=== PATIENT | female | born 1965 | race Caucasian/White ===

== ENCOUNTER 2024-08-08 14:08 | Inpatient (IN) | payer OTHER, SELFPAY ==
[2024-08-08] VITALS (12 sets, daily range): BP systolic 118–155; BP diastolic 59–95; BMI 21.4
--- NOTE | 2024-08-08 09:57 | ED.GENMED ---
History of Present Illness
<Laura Art PA-C - Last Filed: 08/08/24 18:49>
General
Chief Complaint: Generalized Pain
Source: patient
Exam Limitations: none
Time Seen by Provider: 08/08/24 09:43
Nursing documentation reviewed up to this point in time: agreed with
History of Present Illness
History of Present Illness:
59-year-old female with a past medical history presents emergency department today with concerns of generalized left-sided weakness and paresthesias that started around 5 PM last night. Patient states that she is getting ready to go to dinner with
her when she started to feel a bit nauseous started to notice numbness and tingling sensation in her left upper extremity in a sensation that her arm felt heavier. She also started to feel this in her left lower extremity from the knee to
her toes. Patient denies any difficulty walking. Patient denies any dizziness or lightheadedness, any headaches, any neck pain. Patient denies any trauma to the head or neck. Patient denies any vomiting. Patient denies any abdominal pain, chest
pain, shortness of breath. Patient follows with her PCP yearly, is due to get blood work, does not take any medications, they are watching her blood pressure and cholesterol but she has not required medication. She does note that her father had a
stroke. She never had symptoms like this before. She denies any pain in her low back.
Review of Systems
<Laura Art PA-C - Last Filed: 08/08/24 18:49>
Review of Systems
All Other Systems: ROS reviewed and negative except as documented in HPI and ROS
Phy Exam
<Laura Art PA-C - Last Filed: 08/08/24 18:49>
Physical Exam
Physical Exam:
General: Patient is well appearing and in no acute distress; non-toxic
Skin: Warm and dry, no rashes or lesions
Head: Normocephalic, atraumatic
Eyes: Sclera non-icteric. EOMs intact. PERRLA.
Cardiac: Regular rate and rhythm, no murmurs
Peripheral Vascular: No lower extremity swelling or edema
Pulm: Normal respiratory effort, no wheezes, rales, or rhonchi
Musculoskeletal: No bony tenderness to palpation
Neuro: CN II-XII intact, no focal neurologic deficits. Mild sensory loss noted to light touch in left upper and lower extremity. 5 strength in bilateral upper and lower extremities.
Psychiatric: Appropriate mood and affect.
NIH Stroke Score
Level of Consciousness: 0 - Alert
LOC questions: 0-Answers both correctly
Best Gaze: 0-Normal
Visual [place]: 0=Normal, no visual loss
Facial palsy: 0=Normal, symmetrical
Motor - Right Arm: 0=No drift 10 seconds
Motor - Left Arm: 0=No drift 10 seconds
Motor - Right Le-No drift 5 seconds
Motor - Left Le-No drift 5 seconds
Limb Ataxia: 0-Absent
Sensation: 1-Mild loss
Best Language: 0-No aphasia
Dysarthria: 0-Normal
Extinction and Inattention: 0-No abnormality
Course
Tahirlt;Laura Art PA-C - Last Filed: 08/08/24 18:49>
Orders/Labs/Results
Orders:
Orders
08/08/24 10:19
Electrocardiogram (*1) Urgent
Reason for Study: TIA/Stroke
EKG- Treatment ONCE
08/08/24 10:23
Complete Blood Count/With Diff Urgent
Comprehensive Metabolic Panel Urgent
TSH Reflex To Free T4 Urgent
Comment: ADD ON
08/08/24 10:30
CT Head W/o Iv Contrast Urgent
Comment:
Reason For Exam: left sided weakness
08/08/24 10:35
Add On- LAB Urgent
Tests Added?: troponin
08/08/24 10:46
Add On- LAB Urgent
Tests Added?: TSH reflex to T4
08/08/24 11:08
Troponin I Routine
Comment: ADD ON
08/08/24 11:39
Aspirin 325 mg PO NOW STA
Clopidogrel Bisulfate [Plavix] 300 mg PO NOW STA
08/08/24 13:44
Admit/Transfer Patient As Directed
Co-Sign Provider:
Level of Care: Inpatient admission
Assign to:: Telemetry
Physician / Group: Francine Guaman
Diagnosis: CVA
Reason for Telemetry: CVA/TIA
Date to Stop Telemetry: 08/11/24
Time to Stop Telemetry: 11:00
Reason for Hospitalization: CVA
Expected length of stay greater than two midnights?: Yes
ELOS- Estimated Length of Stay in days: 3
I certify the patient meets the requirements for IP care: Yes
PRN Pain Medication Management As Directed
May give lesser potent ordered pain med per pt: Yes
preference::
Protocol:: Medication orders for pain may be administered in a
manner that supports deferring to patient preference
when the pt is:
- Requesting an ordered lesser potent pain medication.
Least to most potent pain medications are defined
as: acetaminophen < NSAID < tramadol < opioids
(morphine, oxycodone, hydromorphone).
- Requesting a lesser dose of the same medication IF
ORDERED.
- Requesting a less intrusive route of administration
if both routes are prescribed by the provider (PO <
IV).
08/08/24 13:45
Code Status As Directed
Resuscitation Status: Full Code
08/08/24 13:48
MR Brain W/o & With Contrast Routine
Reason For Exam: stroke/TIA
Recent pill cam endoscopy?: No
08/08/24 13:48
MA [place] Routine
Comment:
Reason For Exam: stroke/TIA
Recent pill cam endoscopy?: No
MA Neck With Contrast Routine
Comment:
Reason For Exam: stroke/TIA
Recent pill cam endoscopy?: No
08/08/24 18:31
Acetaminophen [Tylenol/Feverall] 650 mg RECTAL Q4HPRN PRN
Acetaminophen [Tylenol] 650 mg PO Q4HPRN PRN
Atorvastatin [Lipitor] 40 mg PO QPM
Enoxaparin Sodium [Lovenox] 40 mg SC QPM
08/08/24 18:31
Echo 2D MMode Color/Doppler Routine
Reason for Study: stroke/TIA
Comment: with doppler, patient 59 yo
Case Management Consult ONCE
Case Management Consult: Discharge Planning
Comment: stroke/tia
DIETARY CONSULT Routine
Reason for Consult: stroke/TIA
NEUROLOGY CONSULT Urgent
Consulting Provider: Nicole Vick
Was physician already notified: Yes
Chain Machine Operator Urgent
Activity As Directed
Activity Level: As Tolerated
NIH Stroke Scale As Directed
Directions: Per protocol
Comment: every shift and with any change in condition or mental status
Neurological Checks As Directed
Frequency: q4h
Additional Instructions:: q4h x 24h upon admission to the floor, then qshift & with any change in condition
and mental status
Patient Education As Directed
Type: Stroke education packet
Comment: provide to patient and family
Pneumatic Compression Sleeves As Directed
Type: Knee high
Swallow Screening CVA/TIA ONLY As Directed
Comment: NPO until swallowing screening completed
If patient FAILS swallow screening:: NPO, Speech Therapy consult, Aspiration Precautions
If patient PASSES swallow screening, diet:: Cholesterol Lowering
Vital Signs As Directed
Frequency: Per unit guidelines
Ot Eval And Treat Routine
Pt Eval And Treat Routine
Activity Level: As Tolerated
Speech Therapy Eval & Treat Routine
DX Deep Vein Thrombosis Video Routine
08/09/24 06:00
Basic Metabolic Panel IN AM
Cardiovascular Evaluation IN AM
Complete Blood Count/No Diff IN AM
Glycohemoglobin (HgbA1c) IN AM
08/09/24 08:00
Aspirin Chewable [Low Strength Aspirin] 81 mg PO DAILY
Clopidogrel Bisulfate [Plavix] 75 mg PO DAILY
08/11/24 11:00
DC Protocol for Telemetry ONCE
Abnormal Lab Results
08/08/24
10:23
RBC 3.82 L 10^6/uL
(4.20-5.40)
Hct 35.8 L %
(37.0-47.0)
MCH 33.0 H pg
(27.0-31.0)
08/08/24 10:23
08/08/24 10:23
Vital Signs
Initial and Last Documented VS:
Initial Vital Signs
Temp Pulse Resp BP Pulse Ox
98.8 F 72 16 150/59 98
08/08/24 09:27 08/08/24 09:27 08/08/24 09:27 08/08/24 09:27 08/08/24 09:27
Last Documented Vital Signs
Temp Pulse Resp BP Pulse Ox
98.8 F 68 16 125/78 99
08/08/24 09:27 08/08/24 09:54 08/08/24 09:27 08/08/24 17:00 08/08/24 18:27
<Darin Alex, DO - Last Filed: 08/08/24 11:35>
Orders/Labs/Results
Orders:
Orders
08/08/24 10:19
Electrocardiogram (*1) Urgent
Reason for Study: TIA/Stroke
EKG- Treatment ONCE
08/08/24 10:23
Complete Blood Count/With Diff Urgent
Comprehensive Metabolic Panel Urgent
TSH Reflex To Free T4 Urgent
Comment: ADD ON
08/08/24 10:30
CT Head W/o Iv Contrast Urgent
Comment:
Reason For Exam: left sided weakness
08/08/24 10:35
Add On- LAB Urgent
Tests Added?: troponin
08/08/24 10:46
Add On- LAB Urgent
Tests Added?: TSH reflex to T4
08/08/24 11:08
Troponin I Routine
Comment: ADD ON
08/08/24 11:39
Aspirin 325 mg PO NOW STA
Clopidogrel Bisulfate [Plavix] 300 mg PO NOW STA
08/08/24 13:44
Admit/Transfer Patient As Directed
Co-Sign Provider:
Level of Care: Inpatient admission
Assign to:: Telemetry
Physician / Group: Francine Guaman
Diagnosis: CVA
Reason for Telemetry: CVA/TIA
Date to Stop Telemetry: 08/11/24
Time to Stop Telemetry: 11:00
Reason for Hospitalization: CVA
Expected length of stay greater than two midnights?: Yes
ELOS- Estimated Length of Stay in days: 3
I certify the patient meets the requirements for IP care: Yes
PRN Pain Medication Management As Directed
May give lesser potent ordered pain med per pt: Yes
preference::
Protocol:: Medication orders for pain may be administered in a
manner that supports deferring to patient preference
when the pt is:
- Requesting an ordered lesser potent pain medication.
Least to most potent pain medications are defined
as: acetaminophen < NSAID < tramadol < opioids
(morphine, oxycodone, hydromorphone).
- Requesting a lesser dose of the same medication IF
ORDERED.
- Requesting a less intrusive route of administration
if both routes are prescribed by the provider (PO <
IV).
08/08/24 13:45
Code Status As Directed
Resuscitation Status: Full Code
08/08/24 13:48
MR Brain W/o & With Contrast Routine
Reason For Exam: stroke/TIA
Recent pill cam endoscopy?: No
08/08/24 13:48
MA [place] Routine
Comment:
Reason For Exam: stroke/TIA
Recent pill cam endoscopy?: No
MA Neck With Contrast Routine
Comment:
Reason For Exam: stroke/TIA
Recent pill cam endoscopy?: No
08/08/24 18:31
Acetaminophen [Tylenol/Feverall] 650 mg RECTAL Q4HPRN PRN
Acetaminophen [Tylenol] 650 mg PO Q4HPRN PRN
Atorvastatin [Lipitor] 40 mg PO QPM
Enoxaparin Sodium [Lovenox] 40 mg SC QPM
08/08/24 18:31
Echo 2D MMode Color/Doppler Routine
Reason for Study: stroke/TIA
Comment: with doppler, patient 59 yo
Case Management Consult ONCE
Case Management Consult: Discharge Planning
Comment: stroke/tia
DIETARY CONSULT Routine
Reason for Consult: stroke/TIA
NEUROLOGY CONSULT Urgent
Consulting Provider: Nicole Vick
Was physician already notified: Yes
Chain Machine Operator Urgent
Activity As Directed
Activity Level: As Tolerated
NIH Stroke Scale As Directed
Directions: Per protocol
Comment: every shift and with any change in condition or mental status
Neurological Checks As Directed
Frequency: q4h
Additional Instructions:: q4h x 24h upon admission to the floor, then qshift & with any change in condition
and mental status
Patient Education As Directed
Type: Stroke education packet
Comment: provide to patient and family
Pneumatic Compression Sleeves As Directed
Type: Knee high
Swallow Screening CVA/TIA ONLY As Directed
Comment: NPO until swallowing screening completed
If patient FAILS swallow screening:: NPO, Speech Therapy consult, Aspiration Precautions
If patient PASSES swallow screening, diet:: Cholesterol Lowering
Vital Signs As Directed
Frequency: Per unit guidelines
Ot Eval And Treat Routine
Pt Eval And Treat Routine
Activity Level: As Tolerated
Speech Therapy Eval & Treat Routine
DX Deep Vein Thrombosis Video Routine
08/09/24 06:00
Basic Metabolic Panel IN AM
Cardiovascular Evaluation IN AM
Complete Blood Count/No Diff IN AM
Glycohemoglobin (HgbA1c) IN AM
08/09/24 08:00
Aspirin Chewable [Low Strength Aspirin] 81 mg PO DAILY
Clopidogrel Bisulfate [Plavix] 75 mg PO DAILY
08/11/24 11:00
DC Protocol for Telemetry ONCE
Abnormal Lab Results
08/08/24
10:23
RBC 3.82 L 10^6/uL
(4.20-5.40)
Hct 35.8 L %
(37.0-47.0)
MCH 33.0 H pg
(27.0-31.0)
08/08/24 10:23
08/08/24 10:23
Vital Signs
Initial and Last Documented VS:
Initial Vital Signs
Temp Pulse Resp BP Pulse Ox
98.8 F 72 16 150/59 98
08/08/24 09:27 08/08/24 09:27 08/08/24 09:27 08/08/24 09:27 08/08/24 09:27
Last Documented Vital Signs
Temp Pulse Resp BP Pulse Ox
98.8 F 68 16 125/78 99
08/08/24 09:27 08/08/24 09:54 08/08/24 09:27 08/08/24 17:00 08/08/24 18:27
<Laura Art PA-C - Last Filed: 08/08/24 18:49>
MDM/Problems Addressed
Differential Diagnosis Includes:
Differentials include stroke, TIA, electrolyte derangement, ACS, herniated nucleus pulposus, thyroid disease
MDM/Problems Addressed:
59-year-old female with a past medical history presents emergency department today with concerns of generalized left-sided weakness and paresthesias that started around 5 PM last night. Patient states that she is getting ready to go to dinner with
her when she started to feel a bit nauseous started to notice numbness and tingling sensation in her left upper extremity in a sensation that her arm felt heavier. On exam, she is well-appearing, no acute distress, CBC and CMP unremarkable,
EKG shows no ischemic changes and troponin undetectable. Here in the emergency department, she has a nonfocal neurologic exam, NIH 1 for sensory loss, CT of the head negative. Discussed findings with neurology. Will admit for further evaluation
for stroke workup. Patient referred for admission
Chronic conditions affecting care:
n/a
Acute Exacerbation and/or Progression of Chronic Illness:
n/a
<Laura Art PA-C - Last Filed: 08/08/24 18:49>
*Pulse Oximetry
Patient hypoxic: no
*Critical Care Note
Total Time (30-74mins, 75-104mins- exclusive of procedures): Not Applicable
Data Reviewed
Review of Other/Old Records Reveals: Records (Reviewed [facility], no previous physician documentation emergency department) and Discharge Summary (No discharge summaries in [facility] to review)
Source: patient and records
Prescriptions/Medications Considered But Not Given:
n/a
Further Testing Considered But Not Given:
n/a
<Laura Art PA-C - Last Filed: 08/08/24 18:49>
Patient Management
Escalation/DeEscalation of care consider admission/obs:
Patient referred for admission
ED Attending Note
<Laura Art PA-C - Last Filed: 08/08/24 18:49>
-
Portions of this chart may have been created with voice recognition software.� Occasional wrong word or��sound alike� substitutions may have occurred due to the inherent limitations of voice recognition software.
<Darin Alex DO - Last Filed: 08/08/24 11:35>
ED Attending Note
Patient seen and examined by attending physician: Yes
I performed a history and physical exam of patient and discussed management with resident, I reviewed resident's note and agree with documented findings and plan of care.: Yes
ED Attending Note:
I reviewed and agree with history plan by Laura Art. My exam revealed
Physical Exam
General: no apparent distress, not acutely ill
Neck: supple. no meningeal signs. normal posterior pharynx
Heart: s1/s2 regular rate and rhythm, no murmur. equal radial
pulses.
HEENT: Pupils equal round reactive to light, EOMI
Lungs: no acute respiratory distress. clear bilaterally
Abdomen: normal bowel sounds. not tender. no CVAT
Neuro: alert and oriented. no focal neurological deficits cranial nerves II through XII intact, except mild sensation changes left upper and lower extremities
Skin: no rash
Psychiatric: well kept. interactive and cooperative
Extremities: no edema. no calf tenderness. negative homans. good distal pulses
CT head normal. Will consult with neurology.
Discharge Plan
Departure
Patient Disposition: Admit
Date of Disposition: 08/08/24
Time of Disposition: 11:43
Admit to: Med/Surg
Presentation/result/management discussed w/ accepting MD/DO: Hospitalist
Patient with high blood pressure during this ER visit?: Yes
Condition: Fair
Discharge Problem:
Left-sided weakness, Paresthesias
Interventions
Interventions:
*Risk Screen - Suicide Last Done: 08/08/24 09:27
*General Assessment Last Done: 08/08/24 09:55
*Neglect/Abuse Screening Last Done: 08/08/24 09:27
ED- Fall Risk Assessment Last Done: 08/08/24 09:55
*ED COVID-19 Vaccine History Last Done: 08/08/24 09:55
*Nursing Disposition Last Done: 08/08/24 18:27
Discharge Date and Time
Discharge Date/Time: 08/08/24 18:33
[2024-08-08 10:34] LABS: % Basophils 0.5 % (0-2); % Eosinophils 0.4 % (0-6); % Immature Granulocytes 0.2 % (0-0.5); % Lymphocytes 24.2 % (20.5-51.1); % Monocytes 6.4 % (1.7-9.3); % Neutrophils 68.3 % (42.2-75.2); Absolute Lymphocytes 1.3 10^3/uL (1.2-3.4); Absolute Monocytes 0.4 10^3/uL (0.1-0.6); Absolute Neutrophils 3.7 10^3/uL (1.4-6.5); Hematocrit 35.8 % (37.0-47.0); Hemoglobin 12.6 g/dL (12.0-16.0); Mean Corp Hgb Conc. 35.2 g/dL (33.0-37.0); Mean Corpuscular Volume 93.7 fL (81.0-99.0); Mean Platelet Volume 9.8 fL (7.4-10.4); Nucleated Red Blood Cells % 0 %; Platelet Count 198 10^3/uL (130-400); Red Blood Cell Count 3.82 10^6/uL (4.20-5.40); Red Cell Dist. Width 11.9 % (11.5-14.5); White Blood Cell Count 5.5 10^3/uL (4.8-10.8)
[2024-08-08 10:51] LABS: ALT (SGPT) 15 U/L (0-35); AST (SGOT) 23 U/L (14-36); Albumin 4.3 g/dl (3.5-5.0); Alkaline Phosphatase 70 U/L (38-126); Blood Urea Nitrogen 8 mg/dl (7-17); Calcium 9.3 mg/dl (8.4-10.2); Carbon Dioxide 28 mmol/L (22-30); Chloride 104 mmol/L (98-107); Estimated Creatinine Clearance 98 ml/min; Glucose 95 mg/dl (70-99); Sodium 141 mmol/L (135-145); Total Bilirubin 0.5 mg/dl (0.2-1.3); eGFR > 60.00
[2024-08-08 11:39] LABS: TSH Reflex To Free T4 1.11 uIU/ml (0.47-4.68)
[2024-08-08 11:42] LABS: Troponin I < 0.012 ng/ml
[2024-08-08] MEDS: PLAVIX 300 MG PO (11:52)
[2024-08-08] MEDS: ASPIRIN 325 MG PO (11:52)
--- NOTE | 2024-08-08 12:09 | CON.NEURO ---
Consultation
Order
Neurology consultation
Date of Consultation: 08/08/24
Requesting Provider: Laura Art PA-C
Reason for Consult: Sensory deficits
HPI: This is a 59-year-old RH woman who presented to [facility] on August 08, 2024 with motor and sensory symptoms
According to the patient she developed heaviness and pain in her right arm, which began last night after work. She describes the sensation as if 20 bricks were thrown on her arm, with the only relief coming from laying down and placing pillows
underneath her arm. She also reports feeling warm, numb, and experiencing a sensation similar to butterflies floating around in her right arm, extending from her shoulder to her hand. She notes that these symptoms began last night and persisted
through the night. Her ability to perform tasks such as typing and reaching above her neck are reportedly unaffected.
In addition to the arm symptoms, she reports experiencing some numbness and tingling in her left foot, which began approximately an hour after the onset of her arm symptoms. She denies any rhythmic movements, postural changes, or sensory loss in her
hands or face.
She denies any recent chiropractic manipulations, vaccinations, or exposure to neurotoxins. She does not smoke and drinks alcohol occasionally. She has a history of constipation but denies any other gastrointestinal issues. She has been experiencing
stress due to her son's recent deployment and misses him. She denies any recent fever, weight loss, or swallowing difficulties.
ER VS: 150/59, 72, afebrile
EKG: NSR, QTc Int : 431 ms
PDMP: none
Labs: normal WBCs, hemoglobin, platelets, sodium, hemoglobin, creatinine, TSH, troponin
CT head-no acute intracranial abnormality noted.
PMH:constipation, seborrheic keratosis, BCC
PSH:none
SH:; works for [employer] in [employer]; nonsmoker; no history of excessive ETOh use
FH:father-stroke at the age of 68, mother has myasthenia gravis
All:NKDA
ROS:Constitutional: Negative. Negative for chills, fever and unexpected weight change.
HENT: Negative for ear pain, hearing loss, tinnitus and trouble swallowing.
Eyes: Negative. Negative for photophobia, pain and visual disturbance.
Respiratory: Negative for cough, choking and shortness of breath.
Cardiovascular: Negative for chest pain, palpitations and leg swelling.
Gastrointestinal: Positive for intermittent constipation
Endocrine: Negative. Negative for cold intolerance.
Genitourinary: Negative for dysuria, flank pain and urgency.
Musculoskeletal: Negative for back pain, gait problem, neck pain and neck stiffness.
Skin: Negative for rash.
Allergic/Immunologic: Negative. Negative for immunocompromised state.
Neurological: Positive for left arm weakness and left arm and leg paresthesias
Psychiatric/Behavioral: Negative for behavioral problems, confusion and hallucinations.
General: Well developed. In no acute distress.
Cardio: Regular rate and rhythm without murmur. Extremities are without cyanosis or edema.
Neuro:
Mental Status: Alert, oriented to person, place, and date. Normal attention and recall. Good fund of knowledge. Follows complex requests across the midline. Comprehension, naming, and repetition intact. Immediate and delayed recall 3/3.
Cranial Nerves: . Pupils are equally round and reactive to light. EOMs full. Visual smiley full to confrontation. No ptosis. No nystagmus. V1-V3 intact to light touch and pinprick bilaterally, symmetric. Face symmetric. Normal hearing AU.
The palate elevated well. SCMs and traps 5/5. Tongue midline. No dysarthria.
Motor: Normal bulk and tone. No pronator or arm drift. Strength 5/5 throughout, except for left biceps�4 out of 5, left triceps 5- out of 5. no clonus.
Reflexes: 2+ throughout the upper extremities and knees. Plantar responses flexor bilaterally. Negative Chrystal's bilaterally
Sensory: Normal vibration and JPS.
Coordination: No dysmetria or tremor.
Gait: Normal base, stance, stride and arm swing
Assessment and Plan:
I. Left proximal monoparesis/hemisensory deficits. Rule out ischemia, demyelinating etiologies
II. Elevated blood pressure
-Telemetry monitoring
-Please obtain brain MRI without eric
-Please check CK, ESR, CRP, Mg
-Outpatient NCS/EMG in brain MRI is unremarkable
-The case was discussed with patient's spouse
I personally reviewed all radiology and labs along with past medical records pertinent to current medical problems. Total time spent in patient care is 60 minutes.
Thank you for allowing us to participate in the care of this patient. We will continue to follow. Please do not hesitate to contact us with any questions or concerns.
Subjective/Objective
Subjective Data
Date of Service: August 08, 2024
Objective Data
Vital Signs
Temp Pulse Resp BP Pulse Ox
37.1 C 68 16 135/88 98
08/08/24 09:27 08/08/24 09:54 08/08/24 09:27 08/08/24 11:03 08/08/24 11:45
Lab Results
08/08/24 10:23
08/08/24 10:23
Sodium 141 mmol/L (135-145) 08/08/24 10:23
Potassium 4.0 mmol/L (3.5-5.1) 08/08/24 10:23
BUN 8 mg/dl (7-17) 08/08/24 10:23
Glucose 95 mg/dl (70-99) 08/08/24 10:23
Calcium 9.3 mg/dl (8.4-10.2) 08/08/24 10:23
Patient Allergies
NKA - No Known Allergies Allergy (Uncoded 08/08/24 09:28)
Unknown
Medications
-
Home Medications
�Medication �Instructions �Recorded
No Meds [No Current Medications] 08/08/24
Home Medications
-
Home Medications
bisacodyl 5 mg tablet,delayed release (Dulcolax (bisacodyl)) 10 mg PO FR 08/08/24
cartilage 40 mg-collagen II 10 mg-boron 5 mg-hyaluronate 3.3 mg tablet (Flowgram) 1 tab PO DAILY 08/08/24
ibuprofen 400 mg tablet 400 mg PO BIDPRN PRN mild pain 08/08/24
red yeast rice 600 mg tablet 600 mg PO DAILY 08/08/24
Vital Signs and Labs
-
Vital Signs and Labs:
Vital Signs
Temp Pulse Resp BP Pulse Ox
37.1 C 68 16 140/87 99
08/08/24 09:27 08/08/24 09:54 08/08/24 09:27 08/08/24 12:00 08/08/24 12:01
Lab Results
08/08/24 10:23
08/08/24 10:23
Sodium 141 mmol/L (135-145) 08/08/24 10:23
Potassium 4.0 mmol/L (3.5-5.1) 08/08/24 10:23
BUN 8 mg/dl (7-17) 08/08/24 10:23
Glucose 95 mg/dl (70-99) 08/08/24 10:23
Calcium 9.3 mg/dl (8.4-10.2) 08/08/24 10:23
--- NOTE | 2024-08-08 13:21 | HPS.HSE ---
Family Physician
-
Family Physician: Елена Nicholas PA-C
Chief Complaint
-
left-sided weakness and paresthesias
History of Present Illness
Ms. Yani Bowers is a 59 yo woman without significant past medical history who presents to the ER with concerns of left-sided weakness and paresthesias that started last night around 5PM.
She states symptoms started in left arm where she felt a heaviness and pain. Symptoms persisted and this morning noticed numbness/tingling in leg with weakness. Left arm symptoms present but improved.
No headache. No fevers/chills. No chest pain. No shortness of breath. + nausea associated with symptoms, no vomiting. No LE swelling. + chronic constipation. No dysuria. No rash.
Medical History
Past Medical History
Past Medical History: Reports None
Past Surgical History: Reports None
Social History
Tobacco: Non-smoker
Alcohol: Occasional
Family History
Family History: Not pertinent
Allergies / Home Medications
Allergies reflects when Allergies were last updated in [facility].
Home Medications with original date entered in [facility]
Allergy/Medication List:
Allergies
Allergy/AdvReac Type Severity Reaction Status Date / Time
NKA - No Known Allergies Allergy Unknown Uncoded 08/08/24 09:28
Home Medications
bisacodyl 5 mg tablet,delayed release (Dulcolax (bisacodyl)) 10 mg PO FR 08/08/24
cartilage 40 mg-collagen II 10 mg-boron 5 mg-hyaluronate 3.3 mg tablet ([facility]) 1 tab PO DAILY 08/08/24
ibuprofen 400 mg tablet 400 mg PO BIDPRN PRN mild pain 08/08/24
red yeast rice 600 mg tablet 600 mg PO DAILY 08/08/24
Review of Systems
-
History Source: Patient
A 12 point ROS was completed and negative except as noted: Yes
Physical Exam
Vital Signs
Vital Signs
Temp Pulse Resp BP Pulse Ox
98.8 F 68 16 140/87 99
08/08/24 09:27 08/08/24 09:54 08/08/24 09:27 08/08/24 12:00 08/08/24 12:01
Physical Exam
General: No Apparent Distress
HEENT: PERRLA
Respiratory: Clear; No Wheezes
Cardiac: S1/S2 and Regular Rhythm
GI: Soft and Non Tender
Musculoskeletal: No Edema
Neuro: AO x 3 and Other (CHAD, EOMI, no facial asymmetry, 5/5 strength b/l upper extremities, no pronator drift, 4+/5 strength LLE with decreased sensation LLE )
Psych: Calm
Laboratory Results
-
08/08/24 10:23
08/08/24 10:23
Laboratory Results
Total Bilirubin 0.5 mg/dl (0.2-1.3) 08/08/24 10:23
AST 23 U/L (14-36) 08/08/24 10:23
ALT 15 U/L (0-35) 08/08/24 10:23
Alkaline Phosphatase 70 U/L (38-126) 08/08/24 10:23
Troponin I < 0.012 ng/ml 08/08/24 11:08
Data Reviewed
-
Diagnostic Radiology: Report Reviewed by me
Lab Data: Labs Reviewed by me
Impression/Plan
-
Ms. Yani Bowers is a 59 yo woman without significant past medical history who presents to the ER with concerns of left-sided weakness and paresthesias that started last night around 5PM.
Triage VS: T 98.8, P 72, RR 16, BP 150/59, SpO2 98%
LABS: WBC 5.5, Hg 12.6, PLT 198, Na 141, K+ 4.0, CO2 28, Cr 0.6, Glucose 95, Trop < 0.012, liver enzymes WNL, TSH 1.11
Troponin negative
HEAD CT
IMPRESSION:
No acute intracranial abnormality noted.
MAR: asa 325 + plavix 300
Left sided weakness with paraesthesias
Left arm pain/weakness
-negative troponin and normal EKG
-concern for CVA versus demyelinating disease?
-admit to telemetry
-neuro checks
-MRI/MRA
-TTE
-neurology consult
-asa/plavix/statin
-PT/OT
DVT PPx lovenox subQ
FULL CODE
[2024-08-08] MEDS: LIPITOR 40 MG PO (20:18)
[2024-08-08] MEDS: LOVENOX 40 MG SC (20:18)
[2024-08-09 03:00] VITALS: BP 138/80
[2024-08-09 06:00] VITALS: BMI 21.3
[2024-08-09 08:08] VITALS: BP 124/70
[2024-08-09 08:09] LABS: Hematocrit 38.2 % (37.0-47.0); Hemoglobin 13.4 g/dL (12.0-16.0); Mean Corp Hgb Conc. 35.1 g/dL (33.0-37.0); Mean Corpuscular Hgb 33.8 pg (27.0-31.0); Mean Corpuscular Volume 96.2 fL (81.0-99.0); Platelet Count 201 10^3/uL (130-400); Red Blood Cell Count 3.97 10^6/uL (4.20-5.40); Red Cell Dist. Width 11.9 % (11.5-14.5); White Blood Cell Count 4.3 10^3/uL (4.8-10.8)
[2024-08-09 08:31] LABS: Blood Urea Nitrogen 11 mg/dl (7-17); Calcium 9.4 mg/dl (8.4-10.2); Carbon Dioxide 24 mmol/L (22-30); Chloride 105 mmol/L (98-107); Estimated Creatinine Clearance 84 ml/min; Glucose 92 mg/dl (70-99); HDL Cholesterol 76 mg/dl; LDL Cholesterol, Calculated 150 mg/dl; Potassium 4.1 mmol/L (3.5-5.1); Sodium 141 mmol/L (135-145); Total Cholesterol 246 mg/dl (50-199); Triglyceride 104 mg/dl (10-149); Very Low Density Lipoprotein 20 mg/dl (0-30); eGFR > 60.00
[2024-08-09] MEDS: PLAVIX 75 MG PO (08:41)
[2024-08-09] MEDS: LOW STRENGTH ASPIRIN 81 MG PO (08:41)
[2024-08-09] MEDS: FLUSH (NSS) 1 FLUSH IV (08:41)
--- NOTE | 2024-08-09 09:39 | W.PN.NEURO.1 ---
Today's Communication / Plan
-
.
Subjective/Objective
Subjective Data
Date of Service: August 09, 2024
Neurology follow-up note.
No acute events overnight. Ms. Bowers reports no compaints.
Brain MRI w/wo eric-numerous nonenhancing T2/FLAIR hyperintensities within the subcortical and periventricular white matter, left cerebellar developmental venous anomaly�
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
LDL 150, t chol 246, normal TSH
PMH:constipation, seborrheic keratosis, BCC
PSH:none
SH:; works for [employer] in [employer]; nonsmoker; no history of excessive ETOh use
FH:father-stroke at the age of 68, mother has myasthenia gravis
All:NKDA
ROS:Constitutional: Negative. Negative for chills, fever and unexpected weight change.
HENT: Negative for ear pain, hearing loss, tinnitus and trouble swallowing.
Eyes: Negative. Negative for photophobia, pain and visual disturbance.
Respiratory: Negative for cough, choking and shortness of breath.
Cardiovascular: Negative for chest pain, palpitations and leg swelling.
Gastrointestinal: Positive for intermittent constipation
Endocrine: Negative. Negative for cold intolerance.
Genitourinary: Negative for dysuria, flank pain and urgency.
Musculoskeletal: Negative for back pain, gait problem, neck pain and neck stiffness.
Skin: Negative for rash.
Allergic/Immunologic: Negative. Negative for immunocompromised state.
Neurological: Positive for left arm weakness and left arm and leg paresthesias
Psychiatric/Behavioral: Negative for behavioral problems, confusion and hallucinations.
General: Well developed. In no acute distress.
Cardio: Regular rate and rhythm without murmur. Extremities are without cyanosis or edema.
Neuro:
Mental Status: Alert, oriented to person, place, and date. Normal attention and recall. Good fund of knowledge. Follows complex requests across the midline. Comprehension, naming, and repetition intact. Immediate and delayed recall 3/3.
Cranial Nerves: . Pupils are equally round and reactive to light. EOMs full. Visual smiley full to confrontation. No ptosis. No nystagmus. V1-V3 intact to light touch and pinprick bilaterally, symmetric. Face symmetric. Normal hearing AU.
The palate elevated well. SCMs and traps 5/5. Tongue midline. No dysarthria.
Motor: Normal bulk and tone. No pronator or arm drift. Strength 5/5 throughout, except for left biceps�4 out of 5, left triceps 5- out of 5. no clonus.
Reflexes: 2+ throughout the upper extremities and knees. Plantar responses flexor bilaterally. Negative Chrystal's bilaterally
Sensory: Normal vibration and JPS.
Coordination: No dysmetria or tremor.
Gait: Normal base, stance, stride and arm swing
Assessment and Plan:
I. Radiologically isolated syndrome
II. Left cerebellar developmental venous anomaly�
III. DLP
-C/T spine MRI w/wo eric
-MS mimickers blood work
-Plan for CSF testing, MCKENZIE
I personally reviewed all radiology and labs along with past medical records pertinent to current medical problems. Total time spent in patient care is 35 minutes.
Thank you for allowing us to participate in the care of this patient. We will continue to follow. Please do not hesitate to contact us with any questions or concerns.
Objective Data
Vital Signs
Temp Pulse Resp BP Pulse Ox
36.6 C 68 18 124/70 97
08/09/24 08:08 08/09/24 08:08 08/09/24 08:08 08/09/24 08:08 08/09/24 08:08
Lab Results
08/09/24 07:50
08/09/24 07:50
Sodium 141 mmol/L (135-145) 08/09/24 07:50
Potassium 4.1 mmol/L (3.5-5.1) 08/09/24 07:50
BUN 11 mg/dl (7-17) 08/09/24 07:50
Glucose 92 mg/dl (70-99) 08/09/24 07:50
Calcium 9.4 mg/dl (8.4-10.2) 08/09/24 07:50
LDL Cholesterol, Calc 150 mg/dl 08/09/24 07:50
Patient Allergies
NKA - No Known Allergies Allergy (Uncoded 08/08/24 09:28)
Unknown
Vital Signs and Labs
-
Vital Signs and Labs:
Vital Signs
Temp Pulse Resp BP Pulse Ox
36.6 C 68 18 124/70 97
08/09/24 08:08 08/09/24 08:08 08/09/24 08:08 08/09/24 08:08 08/09/24 08:08
Lab Results
08/09/24 07:50
08/09/24 07:50
Sodium 141 mmol/L (135-145) 08/09/24 07:50
Potassium 4.1 mmol/L (3.5-5.1) 08/09/24 07:50
BUN 11 mg/dl (7-17) 08/09/24 07:50
Glucose 92 mg/dl (70-99) 08/09/24 07:50
Calcium 9.4 mg/dl (8.4-10.2) 08/09/24 07:50
LDL Cholesterol, Calc 150 mg/dl 08/09/24 07:50
Medications
-
Medications:
Generic Name Dose Route Start Last Admin
Trade Name Freq PRN Reason Stop Dose Admin
Acetaminophen 650 mg 08/08/24 18:31
Acetaminophen 650 Mg Rectal Suppository RECTAL 09/05/24 18:30
Q4HPRN PRN
LAI, mild pain, or temp >100.4F
Acetaminophen 650 mg 08/08/24 18:31
Acetaminophen 325 Mg Tablet PO 09/05/24 18:30
Q4HPRN PRN
LAI, mild pain, or temp >100.4F
Aspirin 81 mg 08/09/24 08:00 08/09/24 08:41
Aspirin 81 Mg Chewable Tablet PO 09/06/24 07:59 81 mg
DAILY TREVON Administration
Atorvastatin Calcium 40 mg 08/08/24 18:31 08/08/24 20:18
Atorvastatin (Lipitor) 40 Mg Tablet PO 09/05/24 18:30 40 mg
QPM TREVON Administration
Clopidogrel Bisulfate 75 mg 08/09/24 08:00 08/09/24 08:41
Clopidogrel 75 Mg Tablet PO 09/06/24 07:59 75 mg
DAILY TREVON Administration
Enoxaparin Sodium 40 mg 08/08/24 18:31 08/08/24 20:18
Enoxaparin Sodium 40 Mg/0.4 Ml Syringe SC 09/05/24 18:30 40 mg
QPM TREVON Administration
Sodium Chloride 0 flush 08/09/24 09:00 08/09/24 08:41
Sodium Chloride 0.9% (Flush) Syringe IV 09/06/24 08:59 1 flush
PER PROTOCOL TREVON Administration
Home Medications
-
Home Medications
bisacodyl 5 mg tablet,delayed release (Dulcolax (bisacodyl)) 10 mg PO FR 08/08/24
cartilage 40 mg-collagen II 10 mg-boron 5 mg-hyaluronate 3.3 mg tablet ([employer]) 1 tab PO DAILY 08/08/24
ibuprofen 400 mg tablet 400 mg PO BIDPRN PRN mild pain 08/08/24
red yeast rice 600 mg tablet 600 mg PO DAILY 08/08/24
[2024-08-09 10:12] LABS: Erythrocyte Sed Rate 16 mm/hour (0-20)
--- NOTE | 2024-08-09 10:13 | PTOTSP ---
Speech Therapy Evaluation
Pt's oropharyngeal swallow within functional limits at this time. Pt passed nursing swallow screen and demonstrated no overt s/sx of aspiration on evaluation. Pt remains at a minimal-low risk for aspiration related complications.
Recommend:
1. Continue IDDSI Level 7 (regular) and thin liquids
2. Medications as tolerated
3. General aspiration precautions
4. No further ST indicated. 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
[2024-08-09 10:15] VITALS: BP 145/78; PULSE 75
--- NOTE | 2024-08-09 10:34 | PTCARENOTE ---
Pt here for Echo/Bubble Study. Procedure completed with aseptic technique per protocol. Left arm 20 G PC Median Antecubital utilized, site clear, flushed easily pre and post Bubble Study. Pt tolerated procedure well, denies any dizziness, denies
SOB, offers no complaints. No change in status.
[2024-08-09 10:41] LABS: Glycohemoglobin (HgbA1c) 5.1 % (4.0-5.6)
[2024-08-09 10:50] VITALS: BP 145/78; PULSE 75
--- NOTE | 2024-08-09 10:52 | W.PN.HOSP.TC ---
Today's Communication/Plan
-
-plan for C/T spine MRI with and without contrast
-F/U blood work: lyme, CHARITY, vasculitis antibodies, angiotensin-1 enzyme
-appreciate neurology
Assessment / Plan
Assessment / Plan
Ms. Yani Bowers is a 59 yo woman without significant past medical history who presents to the ER with concerns of left-sided weakness and paresthesias that started last night around 5PM.
HEAD CT 08/08/24
IMPRESSION:
No acute intracranial abnormality noted.
MRI 08/08/24
IMPRESSION:
No evidence of acute infarction
Additionally there are numerous T2/FLAIR hyperintensities within the subcortical and periventricular white matter, greater than expected for age. Differential includes demyelinating disease, migraines, vasculitis or small vessel disease.
Consider correlation with CSF.
HEAD MRA 08/08/21
IMPRESSION:
This examination demonstrates no focal hemodynamically significant stenosis, aneurysm or occlusion.
NECK MRA 08/08/24
IMPRESSION:
This examination demonstrates no focal hemodynamically significant stenosis, aneurysm or occlusion.
Left sided weakness with paraesthesias
Left arm pain/weakness
-negative troponin and normal EKG
-MRI without acute CVA, finding numerous T2/flair hyperintensities concerning for demyelinating disease, migraines or vasculities
-appreciate neurology consult
-plan for C/T spine MRI with and without contrast
-F/U blood work: lyme, CHARITY, vasculitis antibodies, angiotensin-1 enzyme
DVT PPx lovenox subQ
FULL CODE
Anticipated Discharge: 24 - 48 hours
Subjective/Interval History
-
Date of Service: August 09, 2024
left arm feels good. left leg with parasthesias
Objective Data
-
Labs:
Laboratory Results
08/09/24
07:50
WBC 4.3 L
Hgb 13.4
Hct 38.2
Plt Count 201
Sodium 141
Potassium 4.1
Chloride 105
Carbon Dioxide 24
BUN 11
Creatinine 0.7
Glucose 92
Calcium 9.4
Vital Signs:
Vital Signs
Temp Pulse Resp BP Pulse Ox
97.9 F 68 18 124/70 97
08/09/24 08:08 08/09/24 08:08 08/09/24 08:08 08/09/24 08:08 08/09/24 08:08
I&O
08/08/24 08/09/24 08/10/24
06:59 06:59 06:59
Intake Total 480 / 480
Balance 480 / 480
Review of Systems
-
History Source: Patient
All other systems: Reviewed and negative
Physical Exam
-
General: No Apparent Distress
HEENT: PERRLA
Respiratory: Clear to Auscultation; Negative Wheezes
Cardiac: Regular Rhythm and S1/S2
GI: Soft and Nontender
Musculoskeletal: No Edema
Skin: Warm and Dry; Negative Rash
Neuro: AO x 3 and Other (decreased sensation LLE )
Psych: Calm
Data Reviewed
-
Diagnostic Radiology: Report Reviewed by me
Labs: Labs Reviewed by me
[2024-08-09 11:24] VITALS: BP 139/76
[2024-08-09 11:58] LABS: C-Reactive Protein < 5.00 mg/L (0.0-10.00)
[2024-08-09 13:07] LABS: Folate > 20.0 ng/ml (2.76-20); Vitamin B12 264 pg/ml (239-931)
[2024-08-09] MEDS: TYLENOL 650 MG PO (13:18)
[2024-08-09] MEDS: ATIVAN 0.5 MG PO (14:12)
--- NOTE | 2024-08-09 14:50 | CM ---
CM met with Yani at bedside to complete IA. Yani lives with her in a 2 story home; bed and bath on the 2nd level; AK on the first floor.
No hx of VN or SNF. 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
No needs anticipated at this time. CM to follow for test results (Lyme, CHARITY IgG, Proteinase3, and Meloperoxidase pending) and work up.
Pharmacy: [facility]
PCP: Елена Nicholas
[2024-08-09 17:31] VITALS: BP 129/80
--- NOTE | 2024-08-09 18:09 | W.DS.TRANS ---
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
-
Discharge Instructions:
Discharge Diagnosis/Procedures left sided weakness and paresthesias with
abnormal MRI findings
Diet Regular
Activity As tolerated
Driving Restrictions As prior to admission
Bathing Restrictions None
Instructions:
Stand-Alone Forms:
Changes to Home Medications: No
Discharge Medications:
DC Medications w/original date entered in [facility]
bisacodyl 5 mg tablet,delayed release (Dulcolax (bisacodyl)) 10 mg PO FR Constipation 08/08/24
cartilage 40 mg-collagen II 10 mg-boron 5 mg-hyaluronate 3.3 mg tablet ([facility]) 1 tab PO DAILY Supplement 08/08/24
ibuprofen 400 mg tablet 400 mg PO BIDPRN PRN mild pain 08/08/24
red yeast rice 600 mg tablet 600 mg PO DAILY Supplement 08/08/24
Home Medication Changes
Pending Results: Yes
Additional Pending Results:
lyme, CHARITY, vasculitis antibodies, angiotensin-1 enzyme
--- NOTE | 2024-08-10 12:53 | W.DCSUMMARY ---
Discharge Summary
Discharge Data
Date of Admission: 08/08/24
Date of Discharge: 08/10/24
-
Pending Results: No
Hospital Course
Discharging Physician : Dr. Francine Guaman
Disposition : Home
Primary care physician : Dr. Елена Nicholas
Principal Discharge diagnosis : left sided weakness and paresthesias with abnormal MRI findings; radiographic isolated syndrome
Hospital Course :
Ms. Yani Bowers is a 59 yo woman without significant past medical history who presents to the ER with concerns of left-sided weakness and paresthesias that started last evening. Triage vitals with BP 150/59; labs essentially unremarkable. Head
CT without acute abnormality. She was given aspirin and plavix load and admitted to medicine with Neurology consulting. The following day patient had an MRI which showed no evidence of stroke; numberous T2/FLAIR hyperintensities with differential
demyelinating disease versus migraine versus vasculitis. This was followed by MRI Cervical and Thoracic spine which had no abnormality. Blood work including: lyme, CHARITY, vasculitis antibodies, angiotensin-1 enzyme was sent off and pending at time
of discharge. Her symptoms largely resolved over next 24 hours except minor parasthesias LLE. She is discharged with outpatient Neurology follow up.
Time spent on discharge was 31 minutes.
Important imaging findings :
HEAD CT 08/08/24
IMPRESSION:
No acute intracranial abnormality noted.
MRI 08/08/24
IMPRESSION:
No evidence of acute infarction
Additionally there are numerous T2/FLAIR hyperintensities within the subcortical and periventricular white matter, greater than expected for age. Differential includes demyelinating disease, migraines, vasculitis or small vessel disease.
Consider correlation with CSF.
HEAD MRA 08/08/21
IMPRESSION:
This examination demonstrates no focal hemodynamically significant stenosis, aneurysm or occlusion.
NECK MRA 08/08/24
IMPRESSION:
This examination demonstrates no focal hemodynamically significant stenosis, aneurysm or occlusion.
CERVICAL SPINE MRI 08/09/24
IMPRESSION: Normal morphology and signal intensity of the cervical spinal cord. No evidence for demyelination or myelopathic signal.
THORACIC SPINE MRI 08/09/24
IMPRESSION: Normal morphology and signal intensity of the thoracic spinal cord with no evidence for abnormal enhancement.
TTE 08/09/24
CONCLUSIONS
Normal biventricular size and systolic function without regional wall motion
abnormality.
Left ventricular ejection fraction by volumetric assessment 66%
Normal diastolic function
Normal atrial dimensions
Thickened mitral valve leaflets with mild to moderate mitral regurgitation
Trileaflet aortic valve with trace-mild aortic regurgitation
Mild tricuspid regurgitation
Estimated pulmonary artery pressure of 28 mmHg assuming a right atrial pressure
of 3 mmHg.
No pericardial effusion
Aortic root and proximal ascending aorta normal in size
Interatrial septum intact without evidence of shunt by color-flow Doppler.
Bubble study x 2 negative
Compared to prior study dated 02/24/2016, mitral and aortic regurgitation
slightly worse, previously mild. Tricuspid regurgitation has improved,
previously moderate.
Procedure findings :
Discharge Plan
-
Patient Disposition: Home (Routine Discharge)
Discharge Diagnosis/Procedures: left sided weakness and paresthesias with abnormal MRI findings
Diet: Regular
Activity: As tolerated
Driving Restrictions: As prior to admission
Bathing Restrictions: None
Referrals:
Heide Hale CRNP [Specified Professional Personl] - in one week
Елена Nicholas PA-C [Family Provider] - in less than 1 week
Prescriptions:
Continued
ibuprofen 400 mg Tablet
400 mg PO BIDPRN PRN (Reason: mild pain)
bisacodyl [Dulcolax (bisacodyl)] 5 mg Tablet,Delayed Release (Dr/Ec)
10 mg PO FR
red yeast rice 600 mg Tablet
600 mg PO DAILY
[employer] 40-10-5-3.3 mg Tablet
1 tab PO DAILY
Discharge Orders:
Discharge Patient (As Directed); Ordered 08/09/24
Ordered By: Francine Guaman
Discharge Date and Time
Discharge Date/Time: 08/09/24 19:08
Print Language: JAPANESE
[2024-08-10 23:13] LABS: Angiotensin-1-converting Enzym 52 U/L (16-85)
[2024-08-11 01:20] LABS: ANA, IgG Reflex to HEp-2 None Detected (None Detected)
[2024-08-11 21:02] LABS: Myeloperoxidase Antibody 0 AU/mL (0-19); Serine Protease-3, IgG 1 AU/mL (0-19)
[2024-08-12 15:06] LABS: Lyme Antibody Screen, EIA Negative (Negative)
== END 2024-08-09 19:08 | disposition home or self-care (01) | DRG 60 ==
LOC: 4 EAST ACU 14:08
PROVIDERS: Physician Assistant; ADMITTING PHYSICIAN Student in an Organized Health Care Education/Training Program; CONSULT PHYSICIAN Psychiatry & Neurology Neurology; EMERGENCY PHYSICIAN Emergency Medicine; FAMILY PHYSICIAN Physician Assistant Medical
DX: G37.9 Demyelinating disease of central nervous system, unspecified (principal); G43.909 Migraine, unspecified, not intractable, without status migrainosus; R53.1 Weakness; R29.818 Other symptoms and signs involving the nervous system; M79.602 Pain in left arm; R20.2 Paresthesia of skin; R11.0 Nausea; K59.09 Other constipation; L82.1 Other seborrheic keratosis; R03.0 Elevated blood-pressure reading, without diagnosis of hypertension; Z82.3 Family history of stroke; Z85.828 Personal history of other malignant neoplasm of skin; Z82.0 Family history of epilepsy and other diseases of the nervous system
CPT/HCPCS: 70450; 70544; 70548; 70553; 72156; 72157; 80048; 80053; 80061; 82164; 82607; 82746; 83036; 83516; 84443; 84484; 85025; 85027; 85652; 86038; 86140; 86618; 92610; 93005; 93306; 97162; 97166; 99285; A9575; A9585

== ENCOUNTER → 2024-08-28 14:17 | Outpatient (REF) | payer OTHER, SELFPAY | LOC: WDC 14:17 | PROVIDERS: ATTENDING PHYSICIAN Obstetrics & Gynecology; FAMILY PHYSICIAN Physician Assistant Medical | DX: Z12.31 Encounter for screening mammogram for malignant neoplasm of breast (principal) | CPT/HCPCS: 77063; 77067 ==

== ENCOUNTER → 2025-09-02 15:11 | Outpatient (REF) | payer OTHER, SELFPAY | LOC: WDC 15:11 | PROVIDERS: ATTENDING PHYSICIAN Obstetrics & Gynecology | DX: Z12.31 Encounter for screening mammogram for malignant neoplasm of breast (principal) | CPT/HCPCS: 77063; 77067 ==